=== PATIENT | female | born 1975 | race Two or more races ===

== ENCOUNTER 2017-06-15 14:20 | Outpatient (CLI) | payer OTHER ==
[~2017-06-15 14:20] MED LIST: IBUPROFEN800 MG PO; NORFLEX100MG PO
== END 2017-06-15 15:13 | disposition home or self-care (01) ==
LOC: MAMO-SONO 14:20
DX: N62 Hypertrophy of breast (principal); Z12.31 Encounter for screening mammogram for malignant neoplasm of breast

== ENCOUNTER 2018-12-14 08:46 | Outpatient (CLI) | payer OTHER | END 2018-12-14 09:36 | disposition home or self-care (01) | LOC: NUCLEAR 08:46 | DX: I10 Essential (primary) hypertension (principal); R07.89 Other chest pain; R00.2 Palpitations ==

== ENCOUNTER 2022-01-20 10:05 | Outpatient (CLI) | payer OTHER | END 2022-01-20 10:16 | disposition home or self-care (01) | LOC: RAD 10:05 | PROVIDERS: ATTEND Podiatrist | DX: R07.89 Other chest pain (principal) ==

== ENCOUNTER 2022-01-27 11:13 | Outpatient (CLI) | payer OTHER | END 2022-01-27 11:14 | disposition home or self-care (01) | LOC: LAB 11:13 → EKG 11:13 → LAB 11:14 | PROVIDERS: ATTEND Podiatrist | DX: Z01.810 Encounter for preprocedural cardiovascular examination (principal) ==

== ENCOUNTER 2023-01-21 14:04 | Outpatient (CLI) | payer OTHER | END 2023-01-21 14:21 | disposition home or self-care (01) | LOC: RAD 14:04 | PROVIDERS: ATTEND Podiatrist | DX: M72.2 Plantar fascial fibromatosis (principal) ==